=== PATIENT | female | born 1995 | race Two or more races ===

== ENCOUNTER 2025-02-03 08:29 | Inpatient (IN) | payer MEDICAID, SELFPAY ==
[2025-02-03] VITALS (144 sets, daily range): BP systolic 117–152; BP diastolic 69–93; PULSE 82–156; RESP 16–97; TEMP 36.4–36.9; O2SAT 85–100; BMI 31.5
--- NOTE | 2025-02-03 09:41 | XR_ITS ---
Examination: age Limited TECHNIQUE: Limited transabdominal sonographic images pelvis Exam date and time: February 03, 2025 1052 hours INDICATIONS: Unknown presentation and week, patient in labor today FINDINGS: Viable intrauterine gestation cephalic presentation Cardiac motion 131 BPM Estimated weight 3393 g IMPRESSION: Viable intrauterine gestation cephalic presentation
--- NOTE | 2025-02-03 10:10 | ESHP_ITS ---
Documentation for date of: 02/03/25 OB Labor/Induct. HPI History of Present Illness Chief complaint: 29 y/o 40w 0d presents to L&D in labor at 4 cm : 2 Para: 1 Term pregnancies: 1 pregnancies: 0 Living children: 1 History of Abortions: Spontaneous and Elective: 0 History of Vaginal deliveries: 1 History of sections: No History of : No ALLY: 02/03/25 Gestational Age (weeks): 40 Gestational Age (days): 0 History of present illness: 29 y/o 40w 0d presents to L&D in labor at 4 cm viral every 6-8 minutes, vertex. GBS is neg. has been uncomplicated. Pt has a hx of nvdx1. EFW 3400g History of Present Dating criteria: LMP confirmed by 1st trimester US Adequate Care: Yes Ultrasounds: normal 1st trimester US and normal mid trimester US Obstetrical complications: none Medical complications: none Labs Maternal Blood Type: O Pos Labs: Positive: Rubella Titre, Negative: RPR, Hepatitis B, HIV, Chlamydia, Gonorrhea and Group Beta Strep and Unknown: Herpes Type 1, Herpes Type 2 and Covid-19 Review of Systems Review of Systems Systems Reviewed: All systems reviewed, normal except as documented Past Medical History Surgical History SURGICAL: Negative Section Meds Home Medications and Allergies Home Medications ?Medication ?Instructions ?Recorded ?Confirmed ?Type vit no.95-ferrous 1 tab PO .day 02/03/2501/20 History fumarate 28 mg-folic acid 800 mcg tablet () Allergies Allergy/AdvReac Type Severity Reaction Status Date / Time No Known Allergies Allergy Verified 02/03/25 12:38 OB Exam Physical Exam Vital signs: Temp Pulse Resp BP Pulse Ox 97.7 F 90 18 125/91 H 98 02/03/25 08:44 02/03/25 09:38 02/03/25 08:44 02/03/25 09:38 02/03/25 10:08 Constitutional Constitutional: mild distress (Secondary to painful contractions) Routine HEENT Exam Head: Present normocephalic and atraumatic Eye: Present EOMI, PERRL and normal accommodation ENT: Present mucous membranes moist Routine Neck Exam Neck: Present supple and trachea midline Routine Respiratory Exam Respiratory: Absent respiratory distress Routine Cardiovascular Exam Cardiovascular: Present RRR Routine Abdominal Exam Abdominal: Present soft and normoactive bowel sounds Comments: Gravid uterus Estimated weight 3400g Routine Exam External: Present normal urethra appearance; Absent lesions Detailed Labor and Delivery Exam Dilation (cm): 4 Effacement (%): 80 Cervix position: posterior station: -2 Consistency: soft Presentation: Vertex Membranes: intact Baseline heart rate: 130 monitor accelerations: None monitor decelerations: None energy consultant variability: Moderate (11-25) Contraction frequency (min): 4-6 Tachysystole: No Contraction intensity: Moderate Routine Extremities Exam Extremities: Present full ROM Routine Back/Spine/Pelvis Exam Back/Spine: Present full ROM Routine Skin Exam Skin: Present intact, dry and warm Routine Neurological Exam Neurological: Present alert, oriented X3 and CN II-XII intact Routine Psychiatric Exam Psychiatric: Present normal affect and normal thought process OB Results Labs 02/03/25 10:08 OB Assessment & Plan Assessment and Plan (1) Normal labor: Status: Acute (2) 40 weeks gestation of : Status: Acute Additional Plan Induction method: none Plan: augmentation, anticipate NVD and consult MD [email or web address] Additional Plan Comment: Routine Admit orders Continuous EFM Consult anesthesia for an epidural
[2025-02-03 10:26] LABS: Basophils % (Auto) 0 % (0-2.5); Eosinophils % (Auto) 0 % (0-10); Hematocrit 38.4 % (36.0-46.0); Hemoglobin 12.7 g/dL (12.0-16.0); Immature Granulocytes % (Auto) 1 % (0-0); Immature Granulocytes Auto 0.05 Thou/mm3 (0.00-0.00); Lymphocytes # (Auto) 1.6 Thou/mm3 (1.0-4.8); Lymphocytes % (Auto) 15 % (10-50); Mean Corpuscular HGB Conc 33.1 g/dl (31.0-37.0); Mean Corpuscular Hemoglobin 27.1 pg (25.0-35.0); Mean Corpuscular Volume 82 fL (80-100); Monocytes # (Auto) 0.7 Thou/mm3 (0.0-0.8); Monocytes % (Auto) 6 % (0-12); Neutrophils # (Auto) 8.6 Thou/mm3 (1.8-7.7); Neutrophils % (Auto) 79 % (37-80); Nucleated Red Blood Cell % 0 /100 WBC (0); Platelet Count 274 Thou/mm3 (140-440); RDW Standard Deviation 45.9 fL (36.4-46.3); Red Blood Count 4.69 Miln/mm3 (4.00-5.20)
[2025-02-03 11:05] LABS: Syphilis Nonreactive (Nonreactive)
--- NOTE | 2025-02-03 13:19 | PD.LDPN ---
Documentation for date of: 02/03/25 OB Labor Progress Note Pain Control Pain control: other (Requesting an epidural) Pelvic Exam Dilation (cm): 6 Effacement (%): 90 station: -2 Amniotic membrane status: Ruptured (clear ) Contractions Monitor mode: External Contraction frequency: 4-6 Contraction duration: 40-90 Contraction phase: Contraction Contraction intensity: Moderate Status status: Category l Assessment and Plan Assessment: active labor Plan OB labor note: continuous present management Comments: AROM performed- clear fluids noted RN to call anesthesia,wants an epidural Pt is progressing well on her own Anticipate Dr. Lutz updated
[2025-02-03] MEDS: MINERAL OIL 30 ML UDC TOP (16:30)
[2025-02-03] MEDS: OXYTOCIN in NS 20 units 20 UNIT/1,000 ML BAG 125 UNIT IV (16:37)
[2025-02-03] MEDS: LIDOCAINE HCL 1% 20 ML VIAL INFL (16:38)
[2025-02-03] MEDS: BENZO/LANO/ALOE (Dermoplast) 60 GM CAN 1 SPRAY TOP (17:03)
[2025-02-03] MEDS: IBUPROFEN TAB 400 MG TABLET 800 MG PO (17:03)
--- NOTE | 2025-02-03 17:14 | PD.LDDELS ---
Data ([place]) Data Hx Section: No Maternal Blood Type: O Pos Rubella Titre: Positive RPR: Non-reactive Labs: Negative: RPR, Hepatitis B, HIV, Chlamydia, Gonorrhea and Group Beta Strep and Unknown: Herpes Type 1 and Herpes Type 2 : 2 Para: 1 Term: 1 : 0 Livin : 0 Delivery Data ([place]) Labor Data Stimulated/Augmented: No Induction: No ROM Date: 02/03/25 ROM Time: 13:20 Rupture Type: AROM Amniotic Fluid: Clear Delivery Data EDC: 02/03/25 EDC calculated by:: LMP/early US confirmation Labor Onset Stage 1 Date: 02/02/25 Labor Onset Stage 1 Time: 22:30 Labor Onset Stage 2 Date: 02/03/25 Labor Onset Stage 2 Time: 16:18 Delivery Date: 02/03/25 Delivery Time: 16:34 Gestational age (weeks): 40 Gestational age (days): 0 Placenta Delivery Date: 02/03/25 Placenta Delivery Time: 16:37 Delivered by: Marisol Patel Delivery nurse: Khadijah Erwin Welt Butter Hand at delivery: No Support person(s) at delivery: FOB Other staff at delivery: 2nd Nurse Other staff at delivery: Nursery Nurse Other staff at delivery: Latanya Tenorio Other staff at delivery: Gaby Knutson Delivery Method Delivery: Vaginal Delivery Type: Spontaneous Presentation: Vertex Position: OA Anesthesia Type Primary Anesthesia: None Secondary Anesthesia: Local Delivery Room Medications Other Intrapartum Medications: No Post Delivery Medications N/A: No Placenta Placenta Delivery: Spontaneous Placenta Cultures Obtained: No Placenta Sent for Examination: No Cord Sample: Cord Blood Obtained Episiotomy Episiotomy: None Lacerations #1: Perineal: 1st degree Perineal repair Sutures used for repair: 3.0 Vicryl (CT) EBL Estimated blood loss (ml): 200 Umbilical Cord Umbilical Vessels: 3 Nuchal Cord: x1 Body Cord: Not Applicable Additional Procedures of a viable male . Infant head delivered with a loose nuchal cord that was easily reduced. Infant anterior shoulder delivered with gentle downward traction subsequent deliver the posterior shoulder and the body without complications. Infant placed on mother's abdomen. Vigorous cry upon delivery. Cord was clamped. Cut by FOB. Cord blood obtained. Three-vessel cord noted. Placenta expelled spontaneously and intact. Patient sustained a first-degree perineal laceration repaired using a 3-[address] suture. Excellent hemostasis achieved after vigorous fundal massage and removal of clots from the posterior fornix. EBL 200. Sponge and needle count correct. Mother and baby stable, skin to skin and bonding in LDR Data ([place]) Data Infant Gender: Male Weight Grams: 3500 1 Minute Total: 9 5 Minute Total: 9
[2025-02-03 22:51] LABS: Basophils % (Auto) 0 % (0-2.5); Eosinophils % (Auto) 0 % (0-10); Hematocrit 33.5 % (36.0-46.0); Hemoglobin 11.3 g/dL (12.0-16.0); Immature Granulocytes % (Auto) 1 % (0-0); Immature Granulocytes Auto 0.09 Thou/mm3 (0.00-0.00); Lymphocytes # (Auto) 1.7 Thou/mm3 (1.0-4.8); Lymphocytes % (Auto) 10 % (10-50); Mean Corpuscular HGB Conc 33.7 g/dl (31.0-37.0); Mean Corpuscular Hemoglobin 27.2 pg (25.0-35.0); Mean Corpuscular Volume 81 fL (80-100); Monocytes # (Auto) 1.7 Thou/mm3 (0.0-0.8); Monocytes % (Auto) 10 % (0-12); Neutrophils # (Auto) 13.6 Thou/mm3 (1.8-7.7); Neutrophils % (Auto) 80 % (37-80); Nucleated Red Blood Cell % 0 /100 WBC (0); Platelet Count 238 Thou/mm3 (140-440); RDW Standard Deviation 45.3 fL (36.4-46.3); Red Blood Count 4.15 Miln/mm3 (4.00-5.20)
[2025-02-04 03:30] VITALS: BP 122/80; PULSE 102; RESP 17; TEMP 36.8; O2SAT 97
[2025-02-04] MEDS: IBUPROFEN TAB 400 MG TABLET 800 MG PO ×2 (03:37→14:49)
--- NOTE | 2025-02-04 07:46 | ESDS_ITS ---
DS: Providers Provider Date of admission: 02/03/25 09:16 Primary care physician: Physician No Primary/Family Admitting Provider: Marisol Patel CNM Attending Provider on Admission: Marisol Patel CNM Attending Provider on DC: Marisol Patel CNM Discharging Provider: Marisol Patel CNM Anticipated date of discharge: 02/04/25 DS: Diagnosis Discharge Diagnosis (1) Normal spontaneous vaginal delivery: Status: Acute (2) Encounter for care of lactating mother: Status: Acute (3) Normal labor: Status: Acute (4) 40 weeks gestation of : Status: Acute Problem List Completed Was Problem List Reviewed/Reconciled?: Yes Summary/Hosp Course Brief History: 29 y/o 40w 0d presents to L&D in labor at 4 cm viral every 6-8 minutes, vertex. GBS is neg. has been uncomplicated. Pt has a hx of nvdx1. EFW 3400g 02/03/25: of a viable male infant. head delivered with a loose nuchal cord that was easily reduced. anterior shoulder delivered with gentle downward traction subsequent deliver the posterior shoulder and the body without complications. placed on mother's abdomen. Vigorous cry upon delivery. Cord was clamped. Cut by FOB. Cord blood obtained. Three-vessel cord noted. Placenta expelled spontaneously and intact. Patient sustained a first-degree perineal laceration repaired using a 3-[address] suture. Excellent hemostasis achieved after vigorous fundal massage and removal of clots from the posterior fornix. EBL 200. Sponge and needle count correct. Mother and baby stable, skin to skin and bonding in LDR. 02/04/25: day 1. Patient is stable and afebrile. Doing well and . Breast-feeding infant well. Bonding well. Has much support with significant other. No complaints. Uterus is nontender fundus firm minimal lochia. Discharge instructions given. Patient to follow-up with Carolyne Patel CNM in 3 weeks . Peripartum Data Delivery Method: Normal Vaginal Delivery Episiotomy Description: None Laceration Description: yes and see Delivery Summary 1: Gender: Male Disposition of : home Status at Discharge Cognitive/behavioral status at discharge: Alert and oriented x 3 Functional status at discharge: independent ambulation Overall status at discharge: patient is progressing back to baseline Time Spent with Patient Time attestation: Total time spent providing and/or coordinating discharge services: Time spent: Greater than 30 minutes Exam Vital Signs Temp Pulse Resp BP Pulse Ox 98.1 F 97 18 152/77 H 100 02/03/25 15:00 02/03/25 16:45 02/03/25 15:00 02/03/25 16:45 02/03/25 16:48 Constitutional Constitutional: no acute distress Routine HEENT Exam Head: Present normocephalic and atraumatic Eye: Present EOMI, PERRL and normal accommodation ENT: Present mucous membranes moist Routine Neck Exam Neck: Present full ROM Routine Respiratory Exam Respiratory: Present chest non-tender, lungs clear, normal breath sounds and no resp distress Routine Cardiovascular Exam Cardiovascular: Present RRR Routine Abdominal Exam Abdominal: Present soft and normoactive bowel sounds Comments: Uterus nontender Fundus firm Routine Exam Patient deferred: external exam Routine Extremities Exam Extremities: Present full ROM, pulses intact and normal capillary refill; Absent calf tenderness or tenderness Routine Back/Spine/Pelvis Exam Back/Spine: Present full ROM Routine Skin Exam Skin: Present intact, dry and warm Routine Neurological Exam Neurological: Present alert, oriented X3 and CN II-XII intact Routine Psychiatric Exam Psychiatric: Present normal affect and normal thought process Discharge Plan Plan Patient Disposition: HOME (Self Care) Patient condition on transfer: Stable Prescriptions/Referrals Prescriptions/Med Rec: New ibuprofen 800 mg tablet 800 mg PO Q6H MDD 4 PRN (Reason: pain) Qty: 90 0RF docusate sodium [Colace] 100 mg capsule 100 mg PO BID Qty: 60 0RF lanolin 50 % ointment 1 applic topical TID PRN (Reason: skin irritation) Qty: 15 0RF Continued PNV [id number]-ferrous fumarate-FA [] 28 mg iron- 800 mcg tablet 1 tab PO .day Patient Comments: TAKE 1 TABLET BY MOUTH EVERY DAY FOR 90 DAYS Referrals: No Primary/Family,Physician [Primary Care Provider] - Patient/Caregiver Discharge Instructions Meds to Beds: No Discharge Activity: activity as tolerated Other Discharge Activity Instructions:: Follow-up with Marisol Patel CNM in 3 w eeks Education Materials: After Delivery [place] Concerns, : Caring for Yourself Print Language: Greenlandic Stand Alone Forms: [employer] Award Info., Patient Portal Info Letter Discharge Order Discharge Orders: Discharge (Routine); Ordered 02/04/25 Ordered By: Marisol Patel Planned Discharge Date 02/04/25
[2025-02-04 07:50] VITALS: BP 112/78; PULSE 100; RESP 16; TEMP 36.7; O2SAT 97
[2025-02-04] MEDS: DOCUSATE SOD 100 MG CAPSULE PO (07:50)
[2025-02-04 11:52] VITALS: BP 117/84; PULSE 103; RESP 16; TEMP 36.8; O2SAT 98
[2025-02-04 16:50] VITALS: BP 116/73; PULSE 93; RESP 18; TEMP 36.8; O2SAT 98
== END 2025-02-04 17:31 | disposition home or self-care (01) | DRG 560 ==
LOC: S4SX 16:52 → S4NX 18:21
PROVIDERS: Admitting Provider Nurse Practitioner Women's Health; Visit Provider Obstetrics & Gynecology
DX: O48.0 Post-term pregnancy (principal); O69.81X0 Labor and delivery complicated by cord around neck, without compression, not applicable or unspecified; O70.0 First degree perineal laceration during delivery; Z37.0 Single live birth; Z3A.40 40 weeks gestation of pregnancy
CPT/HCPCS: 36415; 59025; 59409; 76815; 85025; 86780; 86850; 86900; 86901; 94762; J2590; J3490; A9270